=== PATIENT | female | born 1990 | race Caucasian/White ===

== ENCOUNTER 2019-11-24 17:40 | Emergency (ER) | payer BC ==
[~2019-11-24] VITALS: Ht 175.2 cm; Wt 159.2 kg
[~2019-11-24 17:40] MED LIST: CLARITIN10 MG PO; COLACE100 MG PO; Feosol300 MG PO; MOTRIN800 MG PO; ROBAXIN750 MG PO; VICODIN 5/500 505 MG PO; ZITHROMAX Z PA250 MG PO
[2019-11-24 18:26] LABS: BASO # 0.1 10*3/uL (0.0-0.1); BASO % 0.9 % (0.0-1.0); EOS # 0.1 10*3/uL (0.0-0.4); EOS % 0.9 % (1.0-4.0); HEMATOCRIT 40.6 % (37.0-47.0); LYMPH # 1.4 10*3/uL (1.3-4.4); MEAN CELL VOLUME 82.2 fl (81.0-99.0); MEAN CORPUSCULAR HGB 25.5 pg (27.0-31.0); MEAN PLATELET VOLUME 10.9 fl (9.6-12.3); MONO # 0.6 10*3/uL (0.1-1.0); MONO % 9.6 % (3.0-9.0); NEUT # 3.6 10*3/uL (2.3-7.9); NEUT % 63.3 % (47.0-73.0); PLATELET COUNT AUTOMATED 233 10*3/uL (130-400); RED BLOOD COUNT 4.94 10*6/uL (4.10-5.10); RED CELL DISTRI WIDTH 15.5 % (0-14.5); WHITE BLOOD COUNT 5.7 10*3/uL (4.8-10.8)
[2019-11-24 18:41] LABS: ALBUMIN 3.4 gm/dl (3.1-4.5); ALKALINE PHOSPHATASE 58 U/L (45-117); BUN 9 mg/dl (7-24); CHLORIDE 107 mmol/L (98-107); CREATININE 0.89 mg/dL (0.55-1.02); SGOT/AST 24 IU/L (3-35); SGPT/ALT 29 U/L (12-78); SODIUM 139 mmol/L (136-145)
[2019-11-24] MEDS ORDERED: CLINDAMYCIN HC300 MG PO (19:36)
== END 2019-11-24 19:50 | disposition home or self-care (01) ==
LOC: ED 17:40
PROVIDERS: Physician Assistant
DX: L03.115 Cellulitis of right lower limb (principal); E11.9 Type 2 diabetes mellitus without complications; Z88.0 Allergy status to penicillin; Z88.1 Allergy status to other antibiotic agents; Z88.7 Allergy status to serum and vaccine; Z91.018 Allergy to other foods; Z88.6 Allergy status to analgesic agent; Z79.899 Other long term (current) drug therapy

== ENCOUNTER 2021-02-07 14:49 | Emergency (ER) | payer BC ==
[~2021-02-07] VITALS: Wt 163.3 kg
[~2021-02-07 14:49] MED LIST changes: +CLINDAMYCIN HC300 MG PO
[2021-02-07] MEDS ORDERED: PREDNISONE20 M1 PO ×2 (17:16→18:14)
== END 2021-02-07 18:08 | disposition home or self-care (01) ==
LOC: ED 14:49
DX: T63.441A Toxic effect of venom of bees, accidental (unintentional), initial encounter (principal); Z88.0 Allergy status to penicillin; Z88.1 Allergy status to other antibiotic agents; Z88.8 Allergy status to other drugs, medicaments and biological substances; Z88.7 Allergy status to serum and vaccine; Z91.018 Allergy to other foods; Y92.89 Other specified places as the place of occurrence of the external cause

== ENCOUNTER 2021-03-06 14:34 | Emergency (ER) | payer BC ==
[~2021-03-06 14:34] MED LIST changes: +PREDNISONE20 M1 PO
[2021-03-06] MEDS ORDERED: EPIPEN 2-P0.3 MG/0.3 IJ (14:50)
== END 2021-03-06 15:50 | disposition home or self-care (01) ==
LOC: ED 14:34
DX: T63.441A Toxic effect of venom of bees, accidental (unintentional), initial encounter (principal); Y92.89 Other specified places as the place of occurrence of the external cause

== ENCOUNTER 2022-01-17 19:31 | Emergency (ER) | payer BC ==
[~2022-01-17] VITALS: Ht 175.2 cm; Wt 165.1 kg
[~2022-01-17 19:31] MED LIST changes: +EPIPEN 2-P0.3 MG/0.3 IJ
[2022-01-17] MEDS ORDERED: METRONIDAZOLE500 M1 PO (20:38)
== END 2022-01-17 21:17 | disposition home or self-care (01) ==
LOC: ED 19:31
DX: S61.258A Open bite of other finger without damage to nail, initial encounter (principal); F17.200 Nicotine dependence, unspecified, uncomplicated; Z88.0 Allergy status to penicillin; Z88.1 Allergy status to other antibiotic agents; Z88.7 Allergy status to serum and vaccine; Z91.018 Allergy to other foods; Z88.8 Allergy status to other drugs, medicaments and biological substances; Z90.89 Acquired absence of other organs; W55.01XA Bitten by cat, initial encounter; Y93.89 Activity, other specified; Y92.89 Other specified places as the place of occurrence of the external cause; Y99.8 Other external cause status

== ENCOUNTER → 2022-09-15 | Outpatient (CLI) | payer BC ==
[~2022-09-15] MED LIST changes: +METRONIDAZOLE500 M1 PO
== END | disposition home or self-care (01) ==
LOC: US 01:55
PROVIDERS: ATTEND Nurse Practitioner Primary Care
DX: K80.20 Calculus of gallbladder without cholecystitis without obstruction (principal); K76.0 Fatty (change of) liver, not elsewhere classified; R16.0 Hepatomegaly, not elsewhere classified; R16.1 Splenomegaly, not elsewhere classified

== ENCOUNTER 2023-01-14 12:40 | Emergency (ER) | payer BC ==
[~2023-01-14] VITALS: Ht 175.2 cm; Wt 153.3 kg
[2023-01-14] MEDS ORDERED: NATURE'S BLEND F1 MG PO (12:52)
[2023-01-14] MEDS ORDERED: VILAZODONE HCL40 M1 PO (12:52)
[2023-01-14 13:28] LABS: BILIRUBIN Negative (Negative); BLOOD Negative (Negative); CLARITY Clear (Clear); COLOR Yellow (Yellow); GLUCOSE Negative (Negative); KETONE Negative (Negative); LEUKO ESTERASE Negative (Negative); NITRITE Negative (Negative); PH 7.5 (4.5-8.0); SPECIFIC GRAVITY 1.015 (1.001-1.030); UROBILINOGEN 0.2 E.U./dl (0.0-1.0)
[2023-01-14 13:29] LABS: BASO # 0.1 10*3/uL (0.0-0.1); BASO % 0.6 % (0.0-1.0); EOS # 0.4 10*3/uL (0.0-0.4); EOS % 2.9 % (1.0-4.0); LYMPH # 3.9 10*3/uL (1.3-4.4); LYMPH % 32.2 % (27.0-41.0); MEAN CELL VOLUME 84.6 fl (81.0-99.0); MEAN CORPUSCULAR HGB 27.1 pg (27.0-31.0); MEAN PLATELET VOLUME 10.3 fl (9.6-12.3); MONO # 0.6 10*3/uL (0.1-1.0); MONO % 5.2 % (3.0-9.0); NEUT # 7.1 10*3/uL (2.3-7.9); NEUT % 58.8 % (47.0-73.0); PLATELET COUNT AUTOMATED 358 10*3/uL (130-400); RED BLOOD COUNT 5.32 10*6/uL (4.10-5.10); RED CELL DISTRI WIDTH 15.3 % (0-14.5); WHITE BLOOD COUNT 12.1 10*3/uL (4.8-10.8)
[2023-01-14 13:44] LABS: BACTERIA 2+; RBC 0-2 rbc/hpf (0-2); WBC 0-2 wbc/hpf (0-5)
[2023-01-14 13:54] LABS: ALKALINE PHOSPHATASE 66 U/L (46-116); BUN 7 mg/dl (9-23); CHLORIDE 107 mmol/L (98-107); LIPASE 34 U/L (12-53); POTASSIUM 4.4 mmol/L (3.4-5.1); SGPT/ALT 8 U/L (10-49); TOTAL PROTEIN 7.1 gm/dL (6.0-8.0)
[2023-01-14] MEDS ORDERED: ONDANSETRON4 MG SL (14:47)
== END 2023-01-14 15:42 | disposition home or self-care (01) ==
LOC: ED 12:40
PROVIDERS: Nurse Practitioner Family
DX: K80.20 Calculus of gallbladder without cholecystitis without obstruction (principal); E11.9 Type 2 diabetes mellitus without complications; R11.2 Nausea with vomiting, unspecified; Z88.0 Allergy status to penicillin; Z91.018 Allergy to other foods; Z88.1 Allergy status to other antibiotic agents; Z88.6 Allergy status to analgesic agent; Z88.7 Allergy status to serum and vaccine; Z88.8 Allergy status to other drugs, medicaments and biological substances; Z90.89 Acquired absence of other organs

== ENCOUNTER 2023-03-10 21:07 | Emergency (ER) | payer BC ==
[~2023-03-10] VITALS: Ht 175.2 cm; Wt 145.1 kg
[~2023-03-10 21:07] MED LIST changes: +NATURE'S BLEND F1 MG PO; +ONDANSETRON4 MG SL; +VILAZODONE HCL40 M1 PO
== END 2023-03-10 22:17 | disposition home or self-care (01) ==
LOC: ED 21:07
DX: T78.40XA Allergy, unspecified, initial encounter (principal); E11.9 Type 2 diabetes mellitus without complications; F41.9 Anxiety disorder, unspecified; Z88.0 Allergy status to penicillin; Z88.1 Allergy status to other antibiotic agents; Z88.8 Allergy status to other drugs, medicaments and biological substances; Z88.7 Allergy status to serum and vaccine; Z88.6 Allergy status to analgesic agent; Z91.018 Allergy to other foods; Z90.89 Acquired absence of other organs; X58.XXXA Exposure to other specified factors, initial encounter